=== PATIENT | female | born 1995 | race Caucasian/White ===

== ENCOUNTER 2019-12-27 11:21 | Outpatient (CLI) | payer OTHER, SELFPAY ==
--- NOTE | ~2019-12-27 | US_ITS ---
US abdomen limited DATE: 12/27/2019 11:58 INDICATION: Splenomegaly TECHNIQUE: Real-time imaging limited to the spleen COMPARISON: 09/14/2018 right upper quadrant abdominal ultrasound FINDINGS: The prior ultrasound examination of 09/14/2018 does not include the spleen. The spleen measures up to 13.2 cm length on the current examination. 14 cm is upper limits of normal. No splenic mass lesion is evident. IMPRESSION: Spleen measures upper limits of normal size, with 13.2 cm vertical dimension Reviewed, dictated and finalized at [facility]. Reviewed, dictated and finalized at location [facility].
== END 2019-12-27 11:22 | disposition home or self-care (01) ==
PROVIDERS: PCP Family Medicine; Visit Provider Family Medicine
DX: R16.1 Splenomegaly, not elsewhere classified (principal)
CPT/HCPCS: 76705

== ENCOUNTER 2020-03-30 07:01 | Outpatient (CLI) | payer OTHER, SELFPAY ==
--- NOTE | 2020-03-30 07:57 | ECHO_ITS ---
Patient Info Name: Jose Antonio Lo Age: 24 years : 1995 Gender: Female Ht: 66 in Wt: 320 lbs BSA: 2.69 m2 BP: 66 / 320 mmHg Heart Rhythm: Sinus Rhythm Exam Date: 03/30/2020 8:11 AM Exam Location: [facility] Pulmonary Patient Status: Outpatient Admit Date: 03/30/2020 Staff Ordering Physician: Meera Monreal MD Battery Charger Tester: Loulou Arredondo RDCS Attending Provider: Meera Monreal MD Referring Physician: Rah GUTIERREZ; Exam Type: CA echo doppler color flow Study Info Indications R06.02 - Shortness of breath Complete two-dimensional, color flow and Doppler transthoracic echocardiogram is performed. Summary 1. Complete two-dimensional, color flow and Doppler transthoracic echocardiogram is performed. 2. Left ventricular chamber dimension is normal. 3. Left ventricular systolic function is normal, estimated at 60-65%. 4. The left ventricular diastolic function is normal. 5. E/e' 6 is not elevated. 6. Global longitudinal strain is mildly abnormal at -15.7%. Left Ventricle E/e' 6 is not elevated. Global longitudinal strain is mildly abnormal at -15.7%. Left ventricular chamber dimension is normal. Left ventricular systolic function is normal, estimated at 60-65%. The left ventricular diastolic function is normal. Right Ventricle Right ventricular systolic function is normal and with normal TAPSE of 2.1 cm. Right ventricular chamber dimension is normal. Left Atria Left atrial chamber dimension is normal. Right Atria Right atrial chamber dimension is normal. Aortic Valve The aortic valve is trileaflet. There is no aortic valve stenosis. There is no aortic valve regurgitation. Pulmonic Valve There is no pulmonic regurgitation. Mitral Valve There is no mitral valve stenosis. There is no mitral valve regurgitation. Tricuspid Valve There is no tricuspid valve regurgitation. Pericardium/Pleural There is no pericardial effusion. Inferior Vena Cava Normal inferior vena cava with >50% collapse upon inspiration consistent with normal right atrial pressure, 5 mmHg. Aorta The aortic root size at the sinus of Valsalva is normal. Left Ventricular Outflow Tract Name Value Normal LVOT 2D LVOT Diameter 2.0 cm LVOT Doppler LVOT Peak Gradient 4 mmHg LVOT Mean Gradient 2 mmHg LVOT VTI 22 cm LVOT VTI/AV VTI Ratio 0.9 LVOT Stroke Volume 67 ml LVOT CO 4.6 l/min LVOT CI 1.7 l/min/m2 Mitral Valve Name Value Normal MV Doppler MV Decel Floyd 351 cm/s2 MV PHT 58 ms MV Area (PHT) 3.8 cm2 4.0-5.0 MV Diastolic Function
--- NOTE | 2020-04-04 11:53 | WPDPFTINT ---
PFT Interpretation PFT Interpretation: This PFT met all criteria for ATS standards and reproducibility FEV/FVC post bronchodilator 54% FEV1 69% or 2.27 liters FVC 101% 4.17 liters TLC 102% RV 92% RV/TLC 27% DLCO 67% or 23.6 liters when adjusted for alveolar volume but not adjusted for hemoglobin Flow volume loops were normal Impression: Moderate airflow obstruction appears to be present with mildly reduced diffusion capacity. Clinical correlation is advised.
== END 2020-03-30 07:02 | disposition home or self-care (01) ==
PROVIDERS: PCP Family Medicine; Visit Provider Internal Medicine Critical Care Medicine
DX: J45.20 Mild intermittent asthma, uncomplicated (principal); R06.02 Shortness of breath
CPT/HCPCS: 93306; 94060; 94726; 94729

== ENCOUNTER 2020-05-03 15:44 | Outpatient (CLI) | payer OTHER, SELFPAY ==
[2020-05-03 16:20] LABS: Basophils Percent Auto 0.4 % (0.2-1.2); Eosinophils Absolute Auto 0.1 K/mm3 (0-0.3); Hematocrit 39.5 % (37.0-47.0); Hemoglobin 12.9 g/dL (12.0-15.0); Immature Granulocyte Absolute 0.03 K/mm3 (0.00-0.031); Immature Granulocyte Percent A 0.3 % (0-0.5); Lymphocytes Absolute Auto 2.43 K/mm3 (0.9-3.2); Lymphocytes Percent Auto 23.2 % (18.3-44.2); Mean Corpuscular HGB Conc 32.7 g/dl (32-36); Mean Corpuscular Volume 85.7 fl (80-100); Mean Platelet Volume 10.5 fl (7.4-10.4); Monocytes Absolute Auto 0.7 K/mm3 (0.1-0.6); Monocytes Percent Auto 6.3 % (2.6-8.5); Neutrophils Absolute Auto 7.2 K/mm3 (1.3-6.7); Neutrophils Percent Auto 68.8 % (45.5-73.1); Platelet Count Result 298 k/mm3 (150-375); Red Blood Count 4.61 M/mm3 (4.2-5.4); Red Cell Distribution Width 13.7 % (11.5-14.5); White Blood Count 10.5 K/mm3 (4.5-10.0)
[2020-05-03 16:43] LABS: Alanine Aminotransferase 12 U/L (4-35); Albumin Level 4.1 g/dL (3.5-5.1); Alkaline Phosphatase 75 U/L (38-126); Anion Gap 7 mmol/L (8-16); Aspartate Amino Transferase 19 U/L (14-36); Bilirubin,Total 0.4 mg/dL (0.2-1.3); Blood Urea Nitrogen 12 mg/dL (7-17); Calcium 9.4 mg/dL (8.4-10.2); Carbon Dioxide 28 mmol/L (22-30); Chloride 103 mmol/L (98-107); Estimated Glomerular Filt Rate > 60; Glucose 98 mg/dL (65-105); Potassium 3.9 mmol/L (3.4-5.0); Sodium 138 mmol/L (137-145)
[2020-05-07 11:54] LABS: ANCA Screen Negative (Negative); Myeloperoxidase Ab <1.0 AI (<1.0); Proteinase-3 Ab <1.0 AI (<1.0); S cerevisiae Ab (IgG) 9.5 U (<=20.0)
== END 2020-05-03 15:45 | disposition home or self-care (01) ==
LOC: ANHLAB 15:46
PROVIDERS: PCP Family Medicine; Visit Provider Physician Assistant
DX: R19.7 Diarrhea, unspecified (principal)
CPT/HCPCS: 36415; 80053; 84443; 85025; 86021; 86038; 86671

== ENCOUNTER 2020-05-29 02:11 | Outpatient (CLI) | payer OTHER, SELFPAY ==
[2020-05-29 23:00] LABS: SARS-CoV-2 RNA PCR Negative
== END 2020-05-29 02:12 | disposition home or self-care (01) ==
LOC: ANHCOVIDDT 02:11
PROVIDERS: PCP Family Medicine; Visit Provider Internal Medicine Critical Care Medicine
DX: Z01.812 Encounter for preprocedural laboratory examination (principal); Z20.828 Contact with and (suspected) exposure to other viral communicable diseases
CPT/HCPCS: 87635; C9803; U0003

== ENCOUNTER 2020-05-31 07:35 | Outpatient (CLI) | payer OTHER, SELFPAY ==
--- NOTE | 2020-06-27 16:32 | WPDSLEEPSTUD ---
Sleep Study Date of Study: 05/31/20 Ordering Provider: Meera Monreal MD Interpreting Physician: Meera Monreal MD Sleep Study Type: Polysomnogram Height: 1.68 m Weight: 146.057 kg Body Mass Index: 52.0 [place]: 12 Reason for Sleep Study Excessive fatigue and daytime sleepiness Sleep History Jose Antonio Lo is a 24 year old female with a history of loud snoring, waking up with a dry mouth, having morning headaches and non restorative sleep. She describes her sleep as very restless. She wakes up at least once at night to urinate, sometimes more often. She has dreams. She has difficulties with her memory, mood and concentration. She constantly feels like she could take a nap every day but she only is able to take naps on days when she is not working. She works as an EMT. She has small children, and only naps when her kids also are able to nap at the same time. Her legs kick significantly at night. She rocks herself to sleep. Habits: caffeine 60 oz of tea or soda daily. [facility] Past Medical History Medical History Hypersomnia Miscarriage PCOS (polycystic ovarian syndrome) Shortness of Breath Surgical History Surgical History H/O bilateral salpingectomy S/P section Family History Family History Mother Age: 51 No problems noted. Daughter Age: 4y 0m No problems noted. Sibling Age: 27 Asthma Social History Social History Social History: Smoking packs per day: 0.5 Smoking cigarettes per day: 10.0 Smoking status: Former smoker Tobacco type: cigarettes Second hand tobacco smoke exposure: No Smoking end date: 06/16/13 Alcohol intake: current Substance use: never Substance use type: does not use Gender identity (if verbalized by the patient): Female Medications Home Medications Medication Instructions Recorded Confirmed Type albuterol sulfate 90 mcg/actuation 1 inhalation INHALATION Q4-6H PRN 09/22/19 05/31/20 Rx aerosol inhaler #8.5 gm cetirizine 10 mg capsule 10 mg PO DAILY 09/22/19 05/31/20 History norethindrone 1 mg-ethinyl 1 tablet PO DAILY 09/22/19 05/31/20 History estradiol 10 mcg (24)-iron 10 mcg(2) tablet sertraline 100 mg tablet 100 mg PO DAILY #30 tablet 01/18/20 05/31/20 Rx ondansetron HCl 4 mg tablet 4 mg PO Q8H PRN #30 tablet 01/21/20 05/31/20 Rx montelukast 10 mg tablet 10 mg PO DAILY #30 tablet 04/20/20 05/31/20 Rx buspirone 7.5 mg tablet 7.5 mg PO BID #60 tablet 05/03/20 05/31/20 Rx metoprolol tartrate 25 mg tablet 25 mg PO BID #60 tablet 05/03/20 05/31/20 Rx sumatriptan succinate 25 mg tablet See Rx Instructions PO .COMPLEX 06/02/20 Rx #10 tablet cholestyramine-aspartame 4 gram 4 g PO DAILY #210 g 06/26/20 Rx oral powder Sleep Procedure This test was performed using the [employer] multiple channel system including EOG, EEG, submental EMG, EKG, nasal and oral airflow using thermistors and nasal pressure sensors, chest and abdominal belts for body position data, and pulse oximetry. Video monitoring was also performed. The study was scored using [facility] guidelines. Sleep Architecture The recording time was 405.1 minutes. The sleep time was 331.5 minutes. The sleep efficiency was 81.8%. Sleep latency was 27.9 minutes. REM latency was 118 minutes. She had 34 awakenings. She spent 12.1% of the study awake after sleep onset, 45.7 minutes. Sleep architecture showed 13.5% stage 1 sleep, 60.8% stage 2 sleep, 0.4% stage 3 sleep and 13.1% stage REM. She spent 43.9% of the test supine. The remainder was nonsupine. She had 2 REM episodes. Sleep was fragmented with frequent shifts between wake, stage I and stage II even during REM cycles. Respiratory Analysis The apnea-hypopnea index was 2.2. In supine REM she h
[2020-06-29 16:29] VITALS: BMI 52.0
== END 2020-05-31 07:36 | disposition home or self-care (01) ==
LOC: ANHCSM 07:36
PROVIDERS: PCP Family Medicine; Visit Provider Internal Medicine Critical Care Medicine
DX: G47.10 Hypersomnia, unspecified (principal); R06.83 Snoring
CPT/HCPCS: 95810

== ENCOUNTER 2020-08-14 12:46 | Emergency (ER) | payer BC, SELFPAY ==
[2020-08-14 13:06] VITALS: BP 125/66; PULSE 73; RESP 16; TEMP 36.1; O2SAT 98
[2020-08-14 13:26] LABS: Basophils Percent Auto 0.4 % (0.2-1.2); Eosinophils Absolute Auto 0.1 K/mm3 (0-0.3); Eosinophils Percent Auto 0.9 % (0-4.4); Hemoglobin 13.2 g/dL (12.0-15.0); Immature Granulocyte Absolute 0.02 K/mm3 (0.00-0.031); Immature Granulocyte Percent A 0.2 % (0-0.5); Lymphocytes Absolute Auto 2.48 K/mm3 (0.9-3.2); Lymphocytes Percent Auto 24.2 % (18.3-44.2); Mean Corpuscular HGB Conc 32.2 g/dl (32-36); Mean Corpuscular Hemoglobin 28.1 pg (26-34); Mean Corpuscular Volume 87.4 fl (80-100); Mean Platelet Volume 10.4 fl (7.4-10.4); Monocytes Absolute Auto 0.7 K/mm3 (0.1-0.6); Monocytes Percent Auto 6.4 % (2.6-8.5); Neutrophils Percent Auto 67.9 % (45.5-73.1); Platelet Count Result 253 k/mm3 (150-375); Red Blood Count 4.69 M/mm3 (4.2-5.4); Red Cell Distribution Width 14.3 % (11.5-14.5); White Blood Count 10.2 K/mm3 (4.5-10.0)
[2020-08-14 13:35] LABS: Alanine Aminotransferase 11 U/L (4-35); Albumin Level 3.9 g/dL (3.5-5.1); Alkaline Phosphatase 72 U/L (38-126); Anion Gap 6 mmol/L (8-16); Aspartate Amino Transferase 16 U/L (14-36); Bilirubin,Total 0.5 mg/dL (0.2-1.3); Blood Urea Nitrogen 12 mg/dL (7-17); Carbon Dioxide 26 mmol/L (22-30); Chloride 108 mmol/L (98-107); Estimated CRCL calculation 137 ml/min; Estimated Glomerular Filt Rate > 60; Glucose 105 mg/dL (65-105); Potassium 4.1 mmol/L (3.4-5.0); Sodium 140 mmol/L (137-145)
[2020-08-14 13:39] LABS: INR 0.9; Partial Thromboplastin Time 27.5 SECONDS (22.3-36.8); Prothrombin Time 12.9 Seconds (11.1-14.7)
--- NOTE | 2020-08-14 15:03 | ED.GIBLEED ---
HPI - GI Bleed General Chief complaint: GI Bleed Stated complaint: rectal bleeding Time Seen by Provider: 08/14/20 14:44 Source: patient Mode of arrival: ambulatory Limitations: no limitations History of Present Illness HPI Narrative: This is a 24-year-old female that presents the emergency department for bright red blood noted on the tissue today when she wiped. Reports she does have history of hemorrhoids. Has been having trouble with one over the last couple of weeks. Today when she wiped she noted blood on the tissue which concerned her. She has been trying [id number] treatments with little relief. Did report some pain with BM today. Denies fever or abdominal pain. Related Data Home Medications Medication Instructions Recorded Confirmed cetirizine 10 mg capsule 10 mg PO DAILY 09/22/19 08/01/20 norethindrone 1 mg-ethinyl 1 tablet PO DAILY 09/22/19 08/01/20 estradiol 10 mcg (24)-iron 10 mcg(2) tablet Allergies Allergy/AdvReac Type Severity Reaction Status Date / Time acetaminophen [From Vicodin] Allergy Mild nauseas Verified 08/14/20 14:34 hydrocodone [From Vicodin] Allergy Mild nauseas Verified 08/14/20 14:34 Review of Systems Review of Systems: Narrative: CONSTITUTIONAL: Denies fever GASTROINTESTINAL: Denies abdominal pain, nausea, vomiting All systems reviewed & are unremarkable except as noted in HPI and below PMFSH Past Medical History Medical History Hypersomnia Miscarriage PCOS (polycystic ovarian syndrome) Shortness of Breath Surgical History Surgical History H/O bilateral salpingectomy S/P section Family History Family History Mother Age: 51 No problems noted. Daughter Age: 4y 1m No problems noted. Sibling Age: 27 Asthma Social History Social History Social History: Smoking packs per day: 0.5 Smoking cigarettes per day: 10.0 Smoking status: Former smoker Tobacco type: cigarettes Second hand tobacco smoke exposure: No Smoking end date: 06/16/13 Alcohol intake: current Substance use: never Substance use type: does not use Gender identity (if verbalized by the patient): Female Exam Narrative: Exam Narrative: GENERAL: Well-appearing, obese, and in no acute distress. HEAD: Normocephalic, atraumatic. EYES: EOMI. CHEST: Clear to auscultation. No respiratory distress. No wheezes rales or rhonchi HEART: Regular rate and rhythm. No murmur heard. Normal peripheral pulses. ABDOMEN: Soft, nontender, nondistended, normal active bowel sounds. EXTREMITIES: Normal range of motion. No edema. SKIN: Warm, dry, no rash. NEURO: No focal deficits. Alert and oriented x3. PSYCH: Normal mood and affect RECTAL: External hemorrhoid present, nonthrombosed. No active bleeding. Hemoccult negative Course Vital Signs Vital signs: Vital Signs Temperature 97 F L 08/14/20 13:06 Pulse Rate 73 08/14/20 13:06 Respiratory Rate 16 08/14/20 13:06 Blood Pressure 125/66 08/14/20 13:06 Pulse Oximetry 98 08/14/20 13:06 Temperature 97 F L 08/14/20 13:06 Pulse Rate 73 08/14/20 13:06 Respiratory Rate 16 08/14/20 13:06 Blood Pressure 125/66 08/14/20 13:06 Pulse Oximetry 98 08/14/20 13:06 MDM - GI Bleed MDM Narrative Medical decision making narrative: Patient presents to the emergency department for blood noted on the tissue when wiping after bowel movement. She does have an external hemorrhoid which is nonthrombosed. No active bleeding. Her vitals are normal. CBC and metabolic panel without concerning findings. Patient will be started on Anusol cream and be given GI for follow-up. She was given warnings to return to the ER Lab Data Attestation: I reviewed the patient's lab results. Result diagrams:
== END 2020-08-14 15:48 | disposition home or self-care (01) ==
PROVIDERS: Emergency Provider Emergency Medicine; PCP Family Medicine
DX: K64.4 Residual hemorrhoidal skin tags (principal); E28.2 Polycystic ovarian syndrome; Z87.891 Personal history of nicotine dependence
CPT/HCPCS: 36415; 80053; 85025; 85610; 85730; 86850; 86900; 86901; 99283

== ENCOUNTER 2020-09-29 11:32 | Emergency (ER) | payer BC, SELFPAY ==
[2020-09-29 12:13] VITALS: BP 137/92; PULSE 60; RESP 18; TEMP 36.8; O2SAT 100
[2020-09-29 13:35] VITALS: BP 146/71; PULSE 76; RESP 18; O2SAT 100
--- NOTE | 2020-09-29 13:54 | ED.URI ---
HPI - URI/Sore Throat General Chief Complaint: Upper Respiratory Infection Stated Complaint: allergic reaction to perfume Time Seen by Provider: 09/29/20 13:35 History of Present Illness HPI Narrative: Nasal congestion, sinus pressure, mild dizziness for the past few days. Symptoms seemed to get worse worse after being exposed to perfume on Friday. She got a steroid shot following that. Symptoms seemed to improve, but now she has a sore throat and she feels that her tongue/throat feel swollen. No breathing difficulty. No h/o severe allergic reactions. Related Data Home Medications Medication Instructions Recorded Confirmed cetirizine 10 mg capsule 10 mg PO DAILY 09/22/19 08/01/20 norethindrone 1 mg-ethinyl 1 tablet PO DAILY 09/22/19 08/01/20 estradiol 10 mcg (24)-iron 10 mcg(2) tablet Allergies Allergy/AdvReac Type Severity Reaction Status Date / Time acetaminophen [From Vicodin] Allergy Mild nauseas Verified 09/29/20 14:04 hydrocodone [From Vicodin] Allergy Mild nauseas Verified 09/29/20 14:04 Review of Systems Review of Systems: All systems reviewed & are unremarkable except as noted in HPI and below Constitutional: Constitutional: Denies chills and Denies fever(s) Eyes: Eyes: Denies change in vision ENT: Reports as per HPI Cardiovascular: Cardiovascular: Denies chest pain Respiratory: Respiratory: Denies dyspnea Gastrointestinal: Gastrointestinal: Denies abdominal pain, Denies nausea and Denies vomiting Genitourinary: Genitourinary: Reports no additional female genitourinary complaints Musculoskeletal: Musculoskeletal: Reports no additional musculoskeletal complaints Neurologic: Reports system reviewed and no additional complaints, except as documented Allergic/Immunologic: Allergic/Immunologic: Reports as per HPI [facility] Past Medical History Medical History Hypersomnia Miscarriage PCOS (polycystic ovarian syndrome) Shortness of Breath Surgical History Surgical History H/O bilateral salpingectomy S/P section Family History Family History Mother Age: 51 No problems noted. Daughter Age: 4y 3m No problems noted. Sibling Age: 27 Asthma Social History Social History Social History: Smoking packs per day: 0.5 Smoking cigarettes per day: 10.0 Smoking status: Former smoker Tobacco type: cigarettes Second hand tobacco smoke exposure: No Smoking end date: 06/16/13 Alcohol intake: current Substance use: never Substance use type: does not use Gender identity (if verbalized by the patient): Female Exam Const: General: no acute distress and alert Nutritional Appearance: obese Orientation/consciousness: patient oriented x3 HENMT: Head: normal to inspection Ears: hearing grossly normal bilaterally, external ears normal and TM's normal bilaterally General nose exam: Abnormal mucous membranes and turbinates present boggy Face and sinus: sinuses nontender Mouth: Yes Normal oral and palatal mucosa present, Yes lip normal and Yes tongue normal Teeth and gingiva: dentition normal Throat: posterior oropharynx normal Neck: Neck: normal visual inspection and no lymphadenopathy Other: no stridor Resp: Effort & Inspection: normal respiratory effort Auscultation: clear to auscultation bilaterally Cardio: Rate: regular rate Rhythm: regular rhythm Skin: General skin exam: normal color Neuro: General: patient oriented x3, moves all extremities and CN's II-XI intact bilaterally Cranial nerves: Yes Nystagmus not present Speech: normal speech Extrem: General: normal to inspection and no edema Course Vital Signs Vital signs: Vital Signs Temperature 36.8 C 09/29/20 12:13 Pulse Rate 60 09/29/20 12:13 Re
[2020-09-29 15:06] VITALS: BP 146/71; PULSE 76; RESP 16; O2SAT 100
== END 2020-09-29 15:12 | disposition home or self-care (01) ==
PROVIDERS: Emergency Provider Emergency Medicine; PCP Family Medicine
DX: J02.9 Acute pharyngitis, unspecified (principal); E28.2 Polycystic ovarian syndrome; Z87.891 Personal history of nicotine dependence
CPT/HCPCS: 96372; 99283; A9270; J1100

== ENCOUNTER 2021-06-11 12:53 | Emergency (ER) | payer OTHER, SELFPAY ==
[2021-06-11 12:59] VITALS: BP 121/98; PULSE 65; RESP 16; TEMP 35.7; O2SAT 100
--- NOTE | 2021-06-11 13:36 | ED.URI ---
HPI - URI/Sore Throat General Chief Complaint: Upper Respiratory Infection Stated Complaint: fever/sob/fatigue/not eating Time Seen by Provider: 06/11/21 13:24 Source: patient and RN notes reviewed Mode of arrival: ambulatory Limitations: no limitations History of Present Illness HPI Narrative: Patient presents today complaining of a 2-day history of rhinorrhea, cough, fatigue, fever up to 100.4, sweats and chills, nausea. Denies sore throat. Drinking normally, but has not had anything to eat in the last day and a half due to nausea. She has been taking cold and flu medication without much relief. She has been vaccinated against COVID-19. Denies any known exposure. MD elicited complaint: fever and cough Related Data Home Medications Medication Instructions Recorded Confirmed cetirizine 10 mg capsule 10 mg PO DAILY 09/22/19 11/30/20 norethindrone 1 mg-ethinyl 1 tablet PO DAILY 09/22/19 11/30/20 estradiol 10 mcg (24)-iron 10 mcg(2) tablet Allergies Allergy/AdvReac Type Severity Reaction Status Date / Time acetaminophen [From Vicodin] Allergy Mild nauseas Verified 11/30/20 09:43 hydrocodone [From Vicodin] Allergy Mild nauseas Verified 11/30/20 09:43 Review of Systems Review of Systems: CONSTITUTIONAL: Denies body aches. + Fever, sweats, chills, fatigue EYES: Denies visual changes, redness, or discharge. ENT: Denies congestion, sore throat, or otalgia.+ Rhinorrhea CARDIOVASCULAR: Denies chest pain, palpitations, or edema. RESPIRATORY: Denies dyspnea.+ Cough GASTROINTESTINAL: Denies abdominal pain, vomiting, or diarrhea.+ Nausea GENITOURINARY: Denies dysuria or hematuria. SKIN: Denies rash, itching, or wounds. MUSCULOSKELETAL: Denies back pain, joint pain, or myalgia. NEUROLOGIC: Denies headache, numbness, tingling, or weakness. PSYCH: Denies depression or anxiety. [facility] Past Medical History Medical History Hypersomnia Miscarriage PCOS (polycystic ovarian syndrome) Shortness of Breath Surgical History Surgical History H/O bilateral salpingectomy S/P section Family History Family History Mother Age: 51 No problems noted. Daughter Age: 4y 11m No problems noted. Sibling Age: 27 Asthma Social History Social History Social History: Smoking packs per day: 0.5 Smoking cigarettes per day: 10.0 Smoking status: Former smoker Tobacco type: cigarettes Second hand tobacco smoke exposure: No Smoking end date: 06/16/13 Alcohol intake: current Alcohol use details: socially Substance use: never Substance use type: does not use Gender identity (if verbalized by the patient): Female Sexual Orientation (if Verbalized by the Patient): Straight or Heterosexual Comments At time of signature, I have reviewed and agree with nursing past medical, surgical, social and family history unless otherwise noted. Please see nursing chart for further information. There is no relevant family history pertinent to the presenting complaint Exam Narrative: GENERAL: Mildly ill appearing, well-nourished, and in no acute distress. HEAD: Normocephalic, atraumatic. EYES: EOMI. No redness or drainage. Conjunctivae normal. ENT: Mucous membranes pink and moist. Nares clear. No rhinorrhea. TMs normal bilaterally. Throat normal. Uvula midline. NECK: Normal AROM. Supple. No lymphadenopathy. CHEST: No respiratory distress. Clear to auscultation. HEART: Regular rate and rhythm. No murmur appreciated. Normal peripheral pulses. EXTREMITIES: Normal range of motion. No edema. SKIN: Warm, dry, no rash. Capillary refill normal. Normal skin turgor. NEURO: No focal deficits. Alert and oriented x3. Gait steady. PSYCH: Normal affect. No signs
== END 2021-06-11 13:49 | disposition home or self-care (01) ==
PROVIDERS: Emergency Provider Nurse Practitioner; PCP Family Medicine
DX: B34.9 Viral infection, unspecified (principal); Z20.822 Contact with and (suspected) exposure to COVID-19; Z87.891 Personal history of nicotine dependence; E28.2 Polycystic ovarian syndrome
CPT/HCPCS: 99213; G0463

== ENCOUNTER → 2021-06-13 01:36 | Outpatient (CLI) | payer OTHER, SELFPAY ==
[2021-06-14 02:22] LABS: SARS-CoV-2 RNA PCR Negative
== END ==
PROVIDERS: PCP Family Medicine; Visit Provider Nurse Practitioner
DX: B34.9 Viral infection, unspecified (principal); Z20.822 Contact with and (suspected) exposure to COVID-19
CPT/HCPCS: C9803; U0003; U0005

== ENCOUNTER 2021-08-31 10:39 | Outpatient (CLI) | payer OTHER, SELFPAY ==
--- NOTE | ~2021-08-31 | XR_ITS ---
EXAMINATION: XR chest 2V DATE: 08/31/2021 11:01 INDICATION: Other specified cough, productive. TECHNIQUE: Frontal and lateral views of the chest were obtained. COMPARISON: None. FINDINGS: The chest demonstrates clear lungs without pneumonia, pleural effusion, or pneumothorax. Th e heart size is normal. IMPRESSION: 1. No acute cardiopulmonary disease. Reviewed, dictated and finalized at location A.
== END 2021-08-31 10:40 | disposition home or self-care (01) ==
LOC: ANHIMG 10:44
PROVIDERS: PCP Family Medicine; Visit Provider Physician Assistant
DX: R05.8 Other specified cough (principal)
CPT/HCPCS: 71046

== ENCOUNTER 2022-01-08 16:41 | Outpatient (CLI) | payer OTHER, SELFPAY ==
--- NOTE | ~2022-01-08 | CT_ITS ---
EXAMINATION: CT sinus wo con DATE: 01/08/2022 16:56 INDICATION: Chronic sinusitis and headaches. Blurred vision. TECHNIQUE: Computed tomography (CT) of the paranasal sinuses was performed without intravenous contra st. The dose-length product was 329.94 mGy-cm. Automated exposure control and iterative reconstructio n technique were employed. COMPARISON: None FINDINGS: There is moderate mucosal thickening of the maxillary, ethmoid, sphenoid and frontal sinuse s. The ostiomeatal units are occluded by soft tissue. There is mucoperiosteal reaction of the maxillary sinuses. There is rightward nasal septal deviation. There is a left-sided isaac bullosa. IMPRESSION: 1. Moderate chronic sinus disease. Reviewed, dictated and finalized at location A.
== END 2022-01-08 16:42 | disposition home or self-care (01) ==
PROVIDERS: PCP Family Medicine; Visit Provider Otolaryngology
DX: R44.8 Other symptoms and signs involving general sensations and perceptions (principal); R09.82 Postnasal drip; R09.81 Nasal congestion; J34.89 Other specified disorders of nose and nasal sinuses; J34.3 Hypertrophy of nasal turbinates; J32.9 Chronic sinusitis, unspecified; J34.2 Deviated nasal septum
CPT/HCPCS: 70486

== ENCOUNTER 2022-02-22 01:02 | Day surgery (SDC) | payer OTHER, SELFPAY ==
[2022-02-04 12:39] VITALS: BMI 49.3
--- NOTE | 2022-02-04 12:49 | PC.NURSE ---
Addendum entered by Cece Cuello RN 02/14/22 14:47: PT TO ARRIVE AT 1015 ON 02/22/22 FOR SURGERY AT 1215. Original Note: Report to the Outpatient Waiting Room, entrance under the green pavilion located off [address], at time _0815_ on date _[id number]_. OR Time: _1015_. - You and your visitor will be asked to self-screen and do not enter if you have any COVID symptoms. - Only one visitor and NO children visitors are allowed at this time. - The patient visitor is requested to leave or wait in car when not with patient due to restrictions. - A mask is required within the hospital. Patients may have clear liquids (water, carbonated beverages, clear teas, apple juice) until 3 hours prior to surgery with a maximum of 20 ounces. - No food from midnight until time of surgery Take the following medications with a SIP of water the morning of surgery: ___Buspirone, Metoprolol, Prednisone, and Sertraline. Medications to discontinue per physician None Date to take last dose Please no make-up, nail syriac, hairspray, perfume, deodorant, or body powder the day of surgery. No jewelry (including any body piercings) or valuables the day of surgery, leave them at home. Please take a shower or bath the night before, or the morning of, surgery with an antibacterial soap. Wear comfortable, loose fitting clothing. - Jewelry must be removed prior to entering the operating room. Rings and piercings that are not removed may be cut off. - The hospital will not accept responsibility for valuables. - Please leave all valuables, including medications, at home the day of surgery. If you are going home after surgery, a licensed local truck driver must drive you home. - NO public transportation without another adult. - We recommend that an adult stay with you for 24 hours following discharge. - We also recommend that you do not drive, make important decision, drink alcoholic beverages, or take any drugs that were not prescribed by your health care provider for at least 24 hours after your discharge time. Follow any additional instructions given to you from your surgeon. If you or anyone in your household have experienced Covid symptoms in the past week, please notify your surgeon or the nurse liaison at the phone number below for possible testing. Telephone instructions given to __Patient___and asked if any additional questions and then verbalized understanding. Patient advised to call surgeon office or pre surgery nurse liaison [phone] if any additional questions.
--- NOTE | 2022-02-07 12:05 | WPDANESEPPF ---
Anes - Initial Pre Proc Eval Procedure: Operation Date: 02/08/22 10:15 Proposed Procedures p Image Guided Bilateral Maxillary Antrostomy, Bilateral Total Ethmoidectomy, Right Frontal Sinusotomy, Bilateral Inferior Turbinectomy with Outfracture, Left Resection Vandana Bullosa - Timothy Rea MD s Endoscopic Septoplasty - Timothy Rea MD Date/Time: 02/07/22 12:05 Surgeon: Timothy Rea MD Pre Op Diagnosis: Chronic Sinusitis Patient Data Age: 26 Gender: F Height: 1.68 m Weight: 138.6 kg Allergies Allergy/AdvReac Type Severity Reaction Status Date / Time hydrocodone [From Vicodin] AdvReac Mild nauseas Verified 02/04/22 12:37 Home Medications Medication Instructions Recorded Confirmed Type cetirizine 10 mg capsule (Zyrtec) 10 mg PO DAILY 09/22/19 02/04/22 History buspirone 7.5 mg tablet 7.5 mg PO BID #180 tabs 06/22/21 02/04/22 Rx metoprolol tartrate 25 mg tablet 25 mg PO BID #60 tabs 06/22/21 02/04/22 Rx montelukast 10 mg tablet 10 mg PO DAILY #30 tabs 06/22/21 02/04/22 Rx (Singulair) sertraline 100 mg tablet 100 mg PO DAILY #90 tabs 06/22/21 02/04/22 Rx albuterol sulfate 90 mcg/actuation 1 - 2 puff inhalation Q4H PRN 09/10/21 02/04/22 Rx aerosol inhaler (ProAir HFA) shortness of breath or wheezing #8.5 grams azelastine 137 mcg (0.1 %) nasal 1 spray intranasal Q12H #30 mL 10/02/21 02/04/22 Rx spray aerosol fluticasone propionate 50 1 spray intranasal BID #16 mL 10/02/21 02/04/22 Rx mcg/actuation nasal spray,suspension (Flonase Allergy Relief) prednisone 5 mg tablet 5 mg PO DAILY #4 tabs 02/04/22 02/04/22 Rx Results Review: All pre-operative results and documents have been reviewed as part of the pre-operative evaluation. [facility] Past Medical History Medical History (Updated 02/07/22 @ 12:06 by Azam Ulrich MD) Anxiety and depression Hypersomnia Mild intermittent asthma without complication Miscarriage Morbid obesity with BMI of 45.0-49.9, adult PCOS (polycystic ovarian syndrome) Shortness of Breath Surgical History Surgical History H/O bilateral salpingectomy S/P section Family History Family History Mother Age: 52 No problems noted. Daughter Age: 5 No problems noted. Sibling Age: 28 Asthma Social History Social History Social History: Smoking packs per day: 0.5 Smoking cigarettes per day: 10.0 Years smoked: 4 Smoking pack-years: 2.00 Smoking status: Former smoker Tobacco type: cigarettes Second hand tobacco smoke exposure: No Smoking end date: 02/04/15 Alcohol intake: current Alcohol use details: socially Substance use: current Substance use type: marijuana Other substance usage details: Nightly Living arrangements: with family Gender identity (if verbalized by the patient): Female Sexual Orientation (if Verbalized by the Patient): Straight or Heterosexual Spiritual care concerns: No Anes - Eval Final PreProcedure Day of Procedure 02/07/22 12:05 Patient weight: morbidly obese Heart: regular rate and rhythm Lungs: clear to auscultation and normal air movement Airway: Mallampati scale class II Neurological: alert and oriented Last oral intake: >/= 8 hours ASA classification: III Emergent: no Anesthetic plan: proceed Anesthesia type and monitoring: general ETT Results Review: All pre-operative results and documents have been reviewed as part of the pre-operative evaluation. Informed Consent: The patient's anesthetic plan and its attendant risks and benefits were discussed with the patient/family/POA. Questions were solicited and answers provided to the satisfaction of the patient/family/POA.
--- NOTE | 2022-02-14 14:46 | PC.NURSE ---
Pt states no changes in health history since initial interview. Medications updated. New pre-op instructions reviewed with pt. Pt denies further questions at this time.
--- NOTE | 2022-02-21 07:46 | PM.IMHP ---
H&P: HPI History of Present Illness Date/Time: 02/21/22 07:46 Chief Complaint: Chronic sinusitis left isaac bullosa septal deviation turbinate hypertrophy nasal obstruction nasal congestion Narrative: planned surgical procedure Review of Systems Review of Systems: All systems reviewed & are unremarkable except as noted in HPI and below [facility] Past Medical History Medical History (Updated 02/21/22 @ 07:49 by Timothy Rea MD) Anxiety and depression Hypersomnia Mild intermittent asthma without complication Miscarriage Morbid obesity with BMI of 45.0-49.9, adult PCOS (polycystic ovarian syndrome) Shortness of Breath Surgical History Surgical History H/O bilateral salpingectomy S/P section Family History Family History Mother Age: 52 No problems noted. Daughter Age: 5 No problems noted. Sibling Age: 28 Asthma Social History Social History Social History: Smoking packs per day: 0.5 Smoking cigarettes per day: 10.0 Years smoked: 4 Smoking pack-years: 2.00 Smoking status: Former smoker Tobacco type: cigarettes Second hand tobacco smoke exposure: No Smoking end date: 02/04/15 Alcohol intake: current Alcohol use details: socially Substance use: current Substance use type: marijuana Other substance usage details: Nightly Living arrangements: with family Gender identity (if verbalized by the patient): Female Sexual Orientation (if Verbalized by the Patient): Straight or Heterosexual Spiritual care concerns: No Meds Home Medications and Allergies Home Medications Medication Instructions Recorded Confirmed Type cetirizine 10 mg capsule (Zyrtec) 10 mg PO DAILY 09/22/19 02/14/22 History buspirone 7.5 mg tablet 7.5 mg PO BID #180 tabs 06/22/21 02/14/22 Rx metoprolol tartrate 25 mg tablet 25 mg PO BID #60 tabs 06/22/21 02/14/22 Rx montelukast 10 mg tablet 10 mg PO DAILY #30 tabs 06/22/21 02/14/22 Rx (Singulair) albuterol sulfate 90 mcg/actuation 1 - 2 puff inhalation Q4H PRN 09/10/21 02/14/22 Rx aerosol inhaler (ProAir HFA) shortness of breath or wheezing #8.5 grams azelastine 137 mcg (0.1 %) nasal 1 spray intranasal Q12H #30 mL 10/02/21 02/14/22 Rx spray aerosol fluticasone propionate 50 1 spray intranasal BID #16 mL 10/02/21 02/14/22 Rx mcg/actuation nasal spray,suspension (Flonase Allergy Relief) sertraline 100 mg tablet 100 mg PO DAILY #90 tabs 02/20/22 Rx Allergies Allergy/AdvReac Type Severity Reaction Status Date / Time hydrocodone [From Vicodin] AdvReac Mild nauseas Verified 02/14/22 14:46 Exam Narrative: normal ENT exam septal deviation turbinate hypertrophy Assessment and Plan Assessment and plan (1) Facial pressure: Code(s): R44.8 - Other symptoms and signs involving general sensations and perceptions Status: Acute Assessment and Plan: plan OR for ?bilateral image guided maxillary antrostomies without tissue removal bilateral total ethmoidectomies right-sided frontal sinusotomy left-sided isaac bullosa resection endoscopic assisted septoplasty inferior turbinate resection with outfracture risks discussed including brain CSF leak blindness change in vision septal perforation failure to resolve symptoms need for further procedures pain need for narcotic use need for time off work damage to any structure during induction and remains of anesthesia. (2) Nasal congestion: Code(s): R09.81 - Nasal congestion Status: Acute (3) Nasal obstruction: Code(s): J34.89 - Other specified disorders of nose and nasal sinuses Status: Acute (4) Hypertrophy of both inferior nasal turbinates: Code(s): J34.3 - Hypertrophy of nasal turbinates Status: Acute (5) PND (post-nasal d
[2022-02-22] VITALS (10 sets, daily range): BP systolic 116–141; BP diastolic 55–109; PULSE 51–111; RESP 12–20; TEMP 36.6–36.8; O2SAT 93–99
--- NOTE | 2022-02-22 07:11 | WPDHPUPDATE1 ---
History and Physical Update Update Date/Time: 02/22/22 07:11 History and Physical has been reviewed, including an updated exam of the patient. There are NO changes in the patient's condition. Risks, benefits, and alternatives have been discussed and questions answered. Patient agrees to proceed with procedure.
[2022-02-22] MEDS: ACETAMINOPHEN 500 MG TABLET 1000 MG PO ×2 (10:59→17:07)
[2022-02-22] MEDS: LACTATED RINGERS 1,000 ML 30 ML IV CONT ×2 (11:13→16:46)
--- NOTE | 2022-02-22 11:31 | SUR.PREOP ---
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 STATED IT COULD BE 2:15 -3:00 BEFORE SHE GOES INTO SURGERY. PT STATED SHE WOULD LIKE TO WAIT AND HAVE PROCEDURE DONE TODAY
--- NOTE | 2022-02-22 12:35 | WPDANESEPPF ---
Anes - Initial Pre Proc Eval Procedure: Operation Date: 02/22/22 12:15 Proposed Procedures p Image Guided Bilateral Maxillary Antrostomy, Bilateral Total Ethmoidectomy, Right Frontal Sinusotomy, Bilateral Inferior Turbinectomy, Left Resection Vandana Bullosa - Timothy Rea MD s Endoscopic Septoplasty - Timothy Rea MD Date/Time: 02/22/22 12:35 Surgeon: Timothy Rea MD Pre Op Diagnosis: Chronic Sinusitis Patient Data Age: 26 Gender: F Height: 1.68 m Weight: 138.5 kg Last Vital Signs Temp 36.8 C 02/22/22 11:15 Pulse 67 02/22/22 11:15 Resp 16 02/22/22 11:15 BP 128/69 02/22/22 11:15 Pulse Ox 99 02/22/22 11:15 O2 Del Method Room Air 02/22/22 11:15 Allergies Allergy/AdvReac Type Severity Reaction Status Date / Time hydrocodone [From Vicodin] AdvReac Mild nauseas Verified 02/22/22 10:48 Home Medications Medication Instructions Recorded Confirmed Type cetirizine 10 mg capsule (Zyrtec) 10 mg PO DAILY 09/22/19 02/22/22 History buspirone 7.5 mg tablet 7.5 mg PO BID #180 tabs 06/22/21 02/22/22 Rx metoprolol tartrate 25 mg tablet 25 mg PO BID #60 tabs 06/22/21 02/22/22 Rx montelukast 10 mg tablet 10 mg PO DAILY #30 tabs 06/22/21 02/22/22 Rx (Singulair) albuterol sulfate 90 mcg/actuation 1 - 2 puff inhalation Q4H PRN 09/10/21 02/22/22 Rx aerosol inhaler (ProAir HFA) shortness of breath or wheezing #8.5 grams azelastine 137 mcg (0.1 %) nasal 1 spray intranasal Q12H #30 mL 10/02/21 02/22/22 Rx spray aerosol fluticasone propionate 50 1 spray intranasal BID #16 mL 10/02/21 02/22/22 Rx mcg/actuation nasal spray,suspension (Flonase Allergy Relief) sertraline 100 mg tablet 100 mg PO DAILY #90 tabs 02/20/22 Rx Patient hx anesthesia problems: none Family hx anesthesia problems: none Results Review: All pre-operative results and documents have been reviewed as part of the pre-operative evaluation. [facility] Past Medical History Medical History Anxiety and depression Hypersomnia Mild intermittent asthma without complication Miscarriage Morbid obesity with BMI of 45.0-49.9, adult PCOS (polycystic ovarian syndrome) Shortness of Breath Surgical History Surgical History H/O bilateral salpingectomy S/P section Family History Family History Mother Age: 52 No problems noted. Daughter Age: 5 No problems noted. Sibling Age: 28 Asthma Social History Social History Social History: Smoking packs per day: 0.5 Smoking cigarettes per day: 10.0 Years smoked: 4 Smoking pack-years: 2.00 Smoking status: Former smoker Tobacco type: cigarettes Second hand tobacco smoke exposure: No Smoking end date: 02/04/15 Alcohol intake: current Alcohol use details: socially Substance use: current Substance use type: marijuana Other substance usage details: Nightly Living arrangements: with family Gender identity (if verbalized by the patient): Female Sexual Orientation (if Verbalized by the Patient): Straight or Heterosexual Spiritual care concerns: No Anes - Eval Final PreProcedure Day of Procedure 02/22/22 12:35 Patient weight: morbidly obese Heart: regular rate and rhythm Lungs: clear to auscultation Airway: Mallampati scale class II Neurological: alert and oriented Last oral intake: >/= 8 hours ASA classification: II Anesthetic plan: proceed Anesthesia type and monitoring: general ETT and standard monitoring Results Review: All pre-operative results and documents have been reviewed as part of the pre-operative evaluation. Informed Consent: The patient's anesthetic plan and its attendant risks and benefits were discussed with the patient/family/POA. Questions were solicited and answers provided to
[2022-02-22] MEDS: ceFAZolin 3 GM/D5W 100 ML 100 ML IVPB (13:31)
[2022-02-22] MEDS: OXYMETAZOLINE HCL 0.05% NAS 15 ML BTL (*BKC) 1 SPRAY NASAL (14:05)
[2022-02-22] MEDS: LIDO 1%/EPINEPHRINE 1:100,000 10 ML VIAL 20 ML INFILTRATE (15:15)
[2022-02-22] MEDS: MUPIROCIN 2% OINT 22 GM TUBE 1 APPLIC EACH NARE (15:15)
--- NOTE | 2022-02-22 15:53 | P.OP_ITS ---
Procedure Note - Detailed Date of Procedure 02/22/22 Pre-op Diagnosis Chronic Sinusitis nasal obstruction septal deviation turbinate hypertrophy nasal congestion Post-op Diagnosis Same Procedure Performed Bilateral image guided maxillary antrostomies total ethmoidectomies right-sided image guided endoscopic frontal sinusotomy endoscopic assisted septoplasty inferior turbinate submucosal resection with outfracture resection of left con jamee bullosa Surgeon Timothy Rea MD Anesthesia General Indications See above Findings Her endo sleep deviated septum corrected afterwards no perforation left isaac corrected sinuses open disease mucosa throughout. Description of Procedure Patient identified consent verified. Patient brought operating room. Time-out performed. General anesthesia induced. Endotracheal tube secured airway. Patient prepped and draped. Second time-out performed. Image guidance initiated confirmed. Afrin-soaked pledgets placed in the bilateral nasal passages allowed to sit for 5 minutes then removed. 0 degree endoscope utilized 10 cc 1% lidocaine 1 100,000 parts epinephrine injected into the bilateral septum left isaac and inferior turbinates left isaac resected inferiorly with sickle blade and straight through cut stump cauterized with Bovie suction electrocautery setting of 10. Ramo incision sorry Alberto incision made left- sided no Ankur left side nasal septum with a 15 blade left nasal septal elevated with 7 Czech suction osteotome utilized to cross over right nasal septal flap elevated no perforations deviated nasal septum with osteotome Jamaal [place] forceps Eli forceps septum then closed with 3 interrupted 5 0 fast gut sutures. Turbinates reduced submucosal plane with inferior turbinate blade outfractured with [place]. Maxillary antrostomies performed with double ball tip probe backbiter straight through cut and microdebrider image guided. Total ethmoidectomies performed microdebrider Cristyon. Given that she had low- lying anterior ethmoid arteries great care was taken to not injure. Right frontal sinusotomy performed with 70 degree endoscope reversed as well as 70 degree image guided suction Cobra easily cannulated no trauma no complications. At the end the case NasoPore sorry Nova pack was placed lateral to the middle turbinates to ensure the state medialized Mondragon splints then placed sutured anteriorly using a 3-0 mattressed nylon suture. I performed all dictated portions. Blood loss 100 cc. No complications. Care the patient given Anesthesiology. Estimated Blood Loss -100.0 Drains No Packing Yes Pathology None sent Complications No immediate complications Condition Stable Disposition PACU
[2022-02-22] MEDS: ONDANSETRON INJ 4 MG/2 ML VIAL IV PUSH (15:58)
[2022-02-22] MEDS: fentaNYL CITRATE INJ (*CRX) 100 MCG/2 ML VIAL 25 MCG IV PUSH (16:20)
== END 2022-02-22 17:53 | disposition home or self-care (01) ==
PROVIDERS: PCP Family Medicine; Visit Provider Otolaryngology
PROC: (CPT 61782; principal; 2022-02-22 12:15)
PROC: (CPT 30520; 2022-02-22 12:15)
DX: J34.3 Hypertrophy of nasal turbinates (principal); R44.8 Other symptoms and signs involving general sensations and perceptions; R09.81 Nasal congestion; J34.89 Other specified disorders of nose and nasal sinuses; R09.82 Postnasal drip; J32.9 Chronic sinusitis, unspecified; J34.2 Deviated nasal septum; Z79.51 Long term (current) use of inhaled steroids; Z87.891 Personal history of nicotine dependence; F12.90 Cannabis use, unspecified, uncomplicated; F41.9 Anxiety disorder, unspecified; F32.A Depression, unspecified; G47.10 Hypersomnia, unspecified; J45.20 Mild intermittent asthma, uncomplicated; E28.2 Polycystic ovarian syndrome; E66.01 Morbid (severe) obesity due to excess calories; Z68.42 Body mass index [BMI] 45.0-49.9, adult
CPT/HCPCS: 61782; 31276; 30130; 31240; 31256; A9270; J0330; J0690; J1100; J1170; J2250; J2405; J2704; J2710; J3010; J7120